=== PATIENT | female | born 1945 | race Caucasian/White ===

== ENCOUNTER 2025-01-24 06:26 | Day surgery (SDC) | payer MEDICARE, SELFPAY | END 2025-01-24 15:27 | disposition home or self-care (01) | LOC: GI 06:26 | PROVIDERS: ATTENDING PHYSICIAN Internal Medicine Gastroenterology | DX: Z12.11 Encounter for screening for malignant neoplasm of colon (principal); Z86.0101 Personal history of adenomatous and serrated colon polyps; K64.8 Other hemorrhoids | CPT/HCPCS: G0105 ==